=== PATIENT | female | born 1980 | race African-American/Black ===

== ENCOUNTER 2019-04-22 02:36 | Inpatient (IN) | payer BC ==
[2019-04-22 02:57] VITALS: BMI 28.0
--- NOTE | 2019-04-22 03:03 | PDOC ---
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
--- NOTE | 2019-04-22 03:27 | PDOC ---
History of Present Illness - General Chief Complaint: Abnormal Lab Results (Outside) Stated Complaint: PCP SENT/LOW BLOOD COUNT Time Seen by Provider: 04/22/19 02:59 - History of Present Illness Initial Comments: 39 year old female with PMH of allergies, asthma, sickle cell trait and and chronic anemia presenting to our ED after being told by her PCP that her "blood count was low". She does have chronic SOB and global weakness for the past few years. She denies any new symptoms including chest pain, bleeding from any site , or other symptoms. 04/22/19 03:27 Past History - Past Medical History Allergies/Adverse Reactions: Allergies Allergy/AdvReac Type Severity Reaction Status Date / Time walnut Allergy Verified 04/22/19 03:28 Home Medications: Ambulatory Orders Montelukast Na [Singulair -] 10 mg PO HS 04/22/19 - Psycho Social/Smoking Cessation Hx Smoking History: Never smoked Hx Alcohol Use: No Drug/Substance Use Hx: No Review of Systems - Review of Systems Constitutional: No: Chills, Diaphoresis, Fever HEENTM: No: Eye Pain, Blurred Vision, Tearing Respiratory: Yes: Shortness of Breath. No: Cough, Orthopnea Cardiac (ROS): Yes: Lightheadedness. No: Chest Pain, Irregular Heart Rate, Chest Tightness ABD/GI: No: Diarrhea, Nausea, Vomiting : No: Burning, Dysuria, Discharge Integumentary: No: Bruising, Erythema, Flushing Neurological: No: Headache, Numbness, Paresthesia Psychiatric: No: Anxiety, Depression Hematologic/Lymphatic: No: Anemia, Blood Clots, Easy Bleeding *Physical Exam - Vital Signs Last Vital Signs Temp Pulse Resp BP Pulse Ox 98.7 F 85 18 147/86 95 04/22/19 02:50 04/22/19 02:50 04/22/19 02:50 04/22/19 02:50 04/22/19 02:50 - Physical Exam General Appearance: Yes: Nourished, Appropriately Dressed. No: Apparent Distress HEENT: positive: EOMI, JEREMI, Normal ENT Inspection, Normal Voice Neck: positive: Trachea midline, Normal Thyroid, Supple. negative: Tender, Rigid Respiratory/Chest: positive: Lungs Clear, Normal Breath Sounds. negative: Chest Tender, Respiratory Distress, Accessory Muscle Use Cardiovascular: positive: Regular Rhythm, Regular Rate Gastrointestinal/Abdominal: positive: Normal Bowel Sounds, Flat, Soft. negative : Tender Lymphatic: negative: Adenopathy, Tenderness Musculoskeletal: positive: Normal Inspection. negative: CVA Tenderness Extremity: positive: Normal Capillary Refill, Normal Inspection, Normal Range of Motion Integumentary: positive: Dry, Warm, Cyanotic. negative: Normal Color Neurologic: positive: take down inspector II-XII NML intact, Fully Oriented, Alert, Normal Mood/ Affect, Normal Response, Motor Strength 09/07 ED Treatment Course - LABORATORY CBC & Chemistry Diagram: 04/22/19 03:10 04/22/19 03:10 Medical Decision Making - Medical Decision Making 39 year old female with PMH of anemia and "sickle cell trait" presenting with anemia on outside labs and HgB <7.0. Orderd 1 unit PRBC. Unlcear cause for anemia but could be related to other thalessemia vs. pericious anemia vs. diet related anemia vs. occult GI losses vs. losses. Patient will be admitted to Dr. Cassidy/ Jeanette (admit for Dr. Mock) via Hospitalist service. Placed admission under Dr. Joseph per his wishes. 04/22/19 04:10 Discharge - Discharge Information Problems reviewed: Yes Clinical Impression/Diagnosis: Transfusion of blood during current hospitalisation Anemia Qualifiers: Anemia type: unspecified type Qualified Code(s): D64.9 - Anemia, unspecified Condition: Stable - Admission Yes - Follow up/Referral - Patient Discharge Instructions - Post Discharge Activity
[2019-04-22 03:37] LABS: BASO % 1.6 % (0-2.0); EOS % 7.1 % (0-4.5); HEMATOCRIT 21.9 % (32.4-45.2); LYMPH % 32.4 % (8-40); MCHC 30.5 g/dl (32.0-36.0); MEAN CELL VOLUME 61.5 fl (80-96); MEAN PLT VOLUME 8.7 fl (7.5-11.1); MONO % 8.3 % (3.8-10.2); NEUT % 50.6 % (42.8-82.8); PLATELET COUNT 393 K/MM3 (134-434); RBC 3.55 M/mm3 (3.60-5.2); RDW 19.9 % (11.6-15.6); WHITE BLOOD COUNT 6.4 K/mm3 (4.0-10.0)
[2019-04-22 03:38] LABS: MCH 18.8 pg (25.7-33.7)
[2019-04-22 03:39] LABS: HEMOGLOBIN 6.7 GM/dL (10.7-15.3)
[2019-04-22 03:47] LABS: INR 1.02 (0.83-1.09)
[2019-04-22 03:49] LABS: ALBUMIN 3.5 g/dl (3.4-5.0); BILIRUBIN,TOTAL 0.2 mg/dL (0.2-1); BLOOD UREA NITROGEN 15.2 mg/dL (7-18); CALCIUM 8.9 mg/dL (8.5-10.1); CREATININE 0.7 mg/dL (0.55-1.3); POTASSIUM 3.8 mmol/L (3.5-5.1); TOT PROT 7.2 g/dl (6.4-8.2)
[2019-04-22 04:08] LABS: ANISOCYTOSIS 1+
[2019-04-22 04:09] LABS: PLATELET ESTIMATE ADEQUATE
[2019-04-22] MEDS ORDERED: ALBUTEROL SO4 0.083% IH SOL 2.5 MG/3 ML VIAL.NEB. NEB PRN (04:45)
--- NOTE | 2019-04-22 04:51 | HP ---
CHIEF COMPLAINT: Shortness of breath, anemia PCP: Dr. Cummings HISTORY OF PRESENT ILLNESS: Pt. is a 39 y.o. F w/ PMHx. of Iron deficiency anemia, asthma and uterine fibroids presents from Dr. Villalta's office for anemia. Per Pt. her hemoglobin was 6.3 in the office and 6.7 on ED arrival. Pt. endorses having heavy nose bleeds for the past 2 weeks and heavy menstration starting April 12 for a "few days." Per Pt. she does not usually have heavy cycles but endorses it happening intermittently. Pt. states that she is chronically anemic and has been unable to tolerate PO Iron due to constipation and nausea. Pt. states she has only received an IV treatment for IV iron over 4 weeks (4 times) in December 2017. Pt. denies ever getting blood transfusion in the past. Pt. denies having any family history of blood diseases including thalassemia and sickle cell. Pt. states that she sometimes uses her inhaler 3 times per day but that now she is using it 2x per day for the last week because of wheezing for 1 week. Pt. endorses dull chest pain that has been chronic and constant for months. Pt. denies any fever chills, nausea, vomiting, melena, numbness/tingling, constipation, hematochezia or abdominal pain. ER course was notable for: (1) CBC. EKG, CXR (2) T&S, 2 units of pRBCs ordered (3) Recent Travel: Denies PAST MEDICAL HISTORY: As per HPI PAST SURGICAL HISTORY: x 2 Social History: Smoking: Denies Alcohol: Denies Drugs: Denies Allergies walnut Allergy (Verified 04/22/19 03:28) Dander Seasonal allergies HOME MEDICATIONS: Home Medications Medication Instructions Recorded Montelukast Na [Singulair -] 10 mg PO HS 04/22/19 REVIEW OF SYSTEMS As above PHYSICAL EXAMINATION Vital Signs - 24 hr 04/22/19 02:50 Temperature 98.7 F Pulse Rate 85 Respiratory 18 Rate Blood Pressure 147/86 O2 Sat by Pulse 95 Oximetry (%) GENERAL: Awake, alert, and fully oriented, in no acute distress. HEAD: Normal with no signs of trauma. EYES: Extraocular movements intact, sclera anicteric, decreased pallor in conjunctiva. EARS, NOSE, THROAT: Ears normal, nares patent, oropharynx clear without exudates. Moist mucous membranes. NECK: Normal range of motion, supple without lymphadenopathy, JVD, or masses. LUNGS: Diffuse wheezing, no crackles, no accessory muscle use HEART: Regular rate and rhythm, normal S1 and S2 without murmur ABDOMEN: Soft, nontender, not distended, normoactive bowel sounds, no guarding, no rebound, no masses, jose-umbilical hernia, reducible. MUSCULOSKELETAL: Normal range of motion at all joints. No bony deformities or tenderness. No CVA tenderness. UPPER EXTREMITIES: Warm, well-perfused. No cyanosis. No clubbing. No peripheral edema. LOWER EXTREMITIES: 2+ dorsal pedal pulses, warm, well-perfused. No calf tenderness. No pitting edema. NEUROLOGICAL: Cranial nerves II-XII grossly intact. Normal speech. Gait no assessed PSYCHIATRIC: Cooperative. Good eye contact. Appropriate mood and affect. SKIN: Warm, dry, normal turgor Laboratory Results - last 24 hr 04/22/19 04/22/19 04/22/19 03:10 03:10 03:10 WBC 6.4 RBC 3.55 L Hgb 6.7 L* Hct 21.9 L MCV 61.5 L MCH 18.8 L MCHC 30.5 L RDW 19.9 H Plt Count 393 MPV 8.7 Absolute Neuts (auto) 3.2 Neutrophils % 50.6 Lymphocytes % 32.4 Monocytes % 8.3 Eosinophils % 7.1 H Basophils % 1.6 Nucleated RBC % 0 Hypochromia 3+ Platelet Estimate Adequate Platelet Comment No clumping noted Polychromasia 1+ Anisocytosis 1+ Microcytosis 2+ Spherocytes 1+ PT with INR INR PTT (Actin FS) 32.5 Sodium 141 Potassium 3.8 Chloride 107 Carbon Dioxide 27 Anion Gap 7 L BUN 15.2 Creatinine 0.7 Est GFR (CKD-EPI)AfAm 124.73 Est GFR (CKD-EPI)NonAf 107.62 Random Glucose 86 Calcium 8.9 Total Bilirubin 0.2 AST 25 ALT 27 Alkaline Phosphatase 112 LD Total 196 Total Protein 7.2 Albumin 3.5 Blood Type Antibody Screen Crossmatch 04/22/19 04/22/19 04/22/19 03:10 03:10 03:40 WBC RBC Hgb Hct MCV MCH MCHC RDW Plt Count MPV Absolute Neuts (auto) Neutrophils % Lymphocytes % Monocytes % Eosinophils % Basophils % Nucleated RBC % Hypochromia Platelet Estimate Platelet Comment Polychromasia Anisocytosis Microcytosis Spherocytes PT with INR 12.00 INR 1.02 PTT (Actin FS) Sodium Potassium Chloride Carbon Dioxide Anion Gap BUN Creatinine Est GFR (CKD-EPI)AfAm Est GFR (CKD-EPI)NonAf Random Glucose Calcium Total Bilirubin AST ALT Alkaline Phosphatase LD Total Total Protein Albumin Blood Type O POSITIVE O POSITIVE Antibody Screen Negative Negative Crossmatch See Detail ASSESSMENT/PLAN: Pt. is a 39 y.o. F w/ PMHx. of Iron deficiency anemia, asthma and uterine fibroids presents from Dr. Villalta's office for anemia. #Iron deficiency microcytic anemia 2/2 Fibroid Uterus? vs. nose bleeds HgB: 6.7 MCV: 61.5 Per Pt's records from her phone of Iron studies done in December form Dr. Villalta's office, Pt.'s HgB was 7.4, Ferritin was 7. Iron was 22, Total Iron Saturation was 5.2, MCV in 60s. Will transfuse 1 unit, f/u CBC and then if lower than 7, will transfuse again f/u Pelvic US for fibroids #Asthma Duonebs RQID Albuterol PRN f/u CXR keep spO2 above 92% #FEN no IVF, encourage PO intake monitor electrolytes and replete as needed Regular Diet #DVT Ppx. SCDs, hold AC in setting of anemia Visit type - Emergency Visit Emergency Visit: Yes ED Registration Date: 04/22/19 Care time: The patient presented to the Emergency Department on the above date and was hospitalized for further evaluation of their emergent condition. - New Patient This patient is new to me today: Yes Date on this admission: 04/22/19 - Critical Care Critical Care patient: No ATTENDING PHYSICIAN STATEMENT I saw and evaluated the patient. I reviewed the resident's note and discussed the case with the resident. I agree with the resident's findings and plan as documented. SUBJECTIVE: OBJECTIVE: ASSESSMENT AND PLAN:
[2019-04-22 06:13] VITALS: TEMP 98.2
--- NOTE | 2019-04-22 06:59 | PN ---
Teaching Attending Note Name of Resident: Sanju Garrett ATTENDING PHYSICIAN STATEMENT I saw and evaluated the patient. I reviewed the resident's note and discussed the case with the resident. I agree with the resident's findings and plan as documented. SUBJECTIVE: 39 y.o. F w/ PMHx. of Iron deficiency anemia, asthma and uterine fibroids presents from Dr. Villalta's office for anemia With severe anemia requiring a blood transfusion Pt. endorses having heavy nose bleeds for the past 2 weeks and heavy menstration. OBJECTIVE: Last Vital Signs Temp Pulse Resp BP Pulse Ox 98.2 F 80 16 134/83 98 04/22/19 06:11 04/22/19 06:11 04/22/19 06:11 04/22/19 06:11 04/22/19 06:11 GENERAL: Well developed, well nourished. Awake and alert. No acute distress. HEENT: Scleral pallor NECK: Supple. Full ROM. No JVD. Carotid pulses 2+ and symmetric, without bruits. No thyromegaly. No lymphadenopathy. CARDIOVASCULAR: Regular rate and rhythm. No murmurs, rubs, or gallops. Distal pulses are 2+ and symmetric. PULMONARY: No evidence of respiratory distress. Lungs clear to auscultation bilaterally. No wheezing, rales or rhonchi. ABDOMINAL: Soft. Non-tender. Non-distended. No rebound or guarding. No organomegaly. Normoactive bowel sounds. MUSCULOSKELETAL Normal range of motion at all joints. No bony deformities or tenderness. No CVA tenderness. EXTREMITIES: No cyanosis. No clubbing. No edema. No calf tenderness. SKIN: Skin pallor PSYCHIATRIC: Cooperative. Good eye contact. Appropriate mood and affect. Abnormal Lab Results 04/22/19 04/22/19 04/22/19 03:10 03:10 03:40 RBC 3.55 L Hgb 6.7 L* Hct 21.9 L MCV 61.5 L MCH 18.8 L MCHC 30.5 L RDW 19.9 H Eosinophils % 7.1 H Anion Gap 7 L Crossmatch See Detail Imaging reviewed ASSESSMENT AND PLAN: Severe microcytic anemiasuspect from heavy menses or possibly nosebleeds Admit to MedSurg Ferritin, iron studies, vitamin B12 Red blood smear Transfuse 1 unit of PRBC and repeat CBC Pelvic ultrasound to her evaluate for fibroids Hematology consultDrLakhwinder Villalta DVT prophylaxis with SCDs
[2019-04-22] MEDS ORDERED: ALBUTEROL SO4 2.5/IPRATROPIUM 0.5 INH SOL 3 ML VIAL.NEB. NEB ONE ×2 (07:20→12:06)
[2019-04-22] MEDS: ALBUTEROL SO4 2.5/IPRATROPIUM 0.5 INH SOL 3 ML VIAL.NEB. NEB SCH ×3 (07:24→16:12)
--- NOTE | 2019-04-22 11:06 | PN ---
Progress Note, Physician Chief Complaint: Iron deficiency anemia History of Present Illness: NAD received 1 U PRBC Repeat CBC pending - Current Medication List Current Medications: Active Medications Albuterol Sulfate (Ventolin 0.083% Nebulizer Soln -) 1 amp NEB RQID PRN PRN Reason: SHORT OF BREATH/WHEEZING Albuterol/Ipratropium (Duoneb -) 1 amp NEB RQID JACQUELINE Last Admin: 04/22/19 07:24 Dose: 1 amp - Objective Vital Signs: Vital Signs Temperature 98.2 F 04/22/19 06:11 Pulse Rate 80 04/22/19 06:11 Respiratory Rate 16 04/22/19 06:11 Blood Pressure 134/83 04/22/19 06:11 O2 Sat by Pulse Oximetry (%) 98 04/22/19 06:11 Constitutional: Yes: Well Nourished, No Distress, Calm Cardiovascular: Yes: Regular Rate and Rhythm Respiratory: Yes: Regular Musculoskeletal: Yes: WNL Extremities: Yes: WNL Edema: No Peripheral Pulses WNL: Yes Neurological: Yes: Alert, Oriented Psychiatric: Yes: Alert, Oriented Labs: CBC, BMP 04/22/19 03:10 04/22/19 03:10 INR, PTT INR 1.02 (0.83-1.09) 04/22/19 03:10 Problem List - Problems (1) Iron deficiency anemia Assessment/Plan: -Received 1 unit of PRBC -Will give 1 dose of Venofer -Ok to go home after and f/u with Hematology -pt unable to tolerate PO Iron 2/2 to constipation Problems reviewed: Yes Code(s): D50.9 - IRON DEFICIENCY ANEMIA, UNSPECIFIED
--- NOTE | 2019-04-22 11:36 | CONSULT ---
Consultation: REQUESTING PROVIDER: Dr Garrett CONSULT REQUEST: We have been asked to medically evaluate this patient for ( symptomatic anemia Low HGB 6.7 ). HISTORY OF PRESENT ILLNESS: 39 year old female with pmhx of iron deficiency anemia, uterine fibroids , asthma/seasonal allergy, thyroid cyst , heart murmur , presented to the ED from office due to low HGb 6.2. 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 she denies any coagulpathy history or bleeding history in [facility] family , had 4 iron transfusion at [facility] and was not able to tolerate iron oral. Pt. denies any fever chills, nausea, vomiting, melena, numbness/tingling, constipation, hematochezia or abdominal pain. PMHx : Asthma , iron deficiency anemia, thyroid cyst , PSHx : thyroid cyst removal , knee surgery , X2 , diagnostic cardiac cath . 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 : [employer] Meds : Montelukast , Ibuprofen prescription REVIEW OF SYSTEMS: CONSTITUTIONAL: Absent: fever, chills, diaphoresis, generalized weakness, malaise, loss of appetite, weight change HEENT: Absent: rhinorrhea, nasal congestion, throat pain, throat swelling, difficulty swallowing, mouth swelling, ear pain, eye pain, visual changes, nose bleed CARDIOVASCULAR: Absent: dull chest pain, syncope, palpitations, irregular heart rate, lightheadedness, peripheral edema RESPIRATORY: Absent: cough, shortness of breath, dyspnea with exertion, orthopnea, wheezing, stridor, hemoptysis GASTROINTESTINAL: Absent: abdominal pain, abdominal distension, nausea, vomiting, diarrhea, constipation, melena, hematochezia GENITOURINARY: Absent: dysuria, frequency, urgency, hesitancy, hematuria, flank pain, genital pain, menorrhagia , MUSCULOSKELETAL: Absent: myalgia, arthralgia, joint swelling, back pain, neck pain SKIN: Absent: rash, itching, pallor HEMATOLOGIC/IMMUNOLOGIC: Absent: easy bleeding, easy bruising, lymphadenopathy, frequent infections ENDOCRINE: Absent: unexplained weight gain, unexplained weight loss, heat intolerance, cold intolerance NEUROLOGIC: Absent: headache, focal weakness or paresthesias, dizziness, unsteady gait, seizure, mental status changes, bladder or bowel incontinence PSYCHIATRIC: Absent: anxiety, depression, suicidal or homicidal ideation, hallucinations. PHYSICAL EXAMINATION Vital Signs - 24 hr 04/22/19 04/22/19 04/22/19 02:50 04:55 05:10 Temperature 98.7 F 97.8 F 98.1 F Pulse Rate 85 Pulse Rate [ 86 83 Right Radial] Respiratory 18 18 18 Rate Blood Pressure 147/86 Blood Pressure 134/67 132/70 [Left Arm] O2 Sat by Pulse 95 100 98 Oximetry (%) 04/22/19 04/22/19 06:11 11:03 Temperature 98.2 F 98.2 F Pulse Rate Pulse Rate [ 80 79 Right Radial] Respiratory 16 19 Rate Blood Pressure Blood Pressure 134/83 130/67 [Left Arm] O2 Sat by Pulse 98 99 Oximetry (%) GENERAL: Awake, alert, and fully oriented, in no acute distress.palor HEAD: Normal with no signs of trauma. EYES: Pupils equal, round and reactive to light, extraocular movements intact, sclera aplor , EARS, NOSE, THROAT: Ears normal, nares patent, oropharynx clear without exudates. Moist mucous membranes. NECK: supple without lymphadenopathy, anterior surgical scar LUNGS: Breath sounds equal, clear to auscultation bilaterally. No wheezes, and no crackles. No accessory muscle use. HEART: Regular rate and rhythm, normal S1 and S2 soft murmur LUSB , rub or gallop. ABDOMEN: Soft, nontender, not distended, normoactive bowel sounds, no guarding, no rebound,, umbilical hernia LOWER EXTREMITIES: 2+ pulses, warm, well-perfused. No calf tenderness. No peripheral edema. NEUROLOGICAL: no focal deficit . Normal speech. Normal gait. PSYCHIATRIC: Cooperative. Good eye contact. SKIN: Warm, dry, tatoes on hands and legs, anterior surgical neck scar (thyroid cyst removal ) Laboratory Results - last 24 hr 04/22/19 04/22/19 04/22/19 03:10 03:10 03:10 WBC 6.4 RBC 3.55 L Hgb 6.7 L* Hct 21.9 L MCV 61.5 L MCH 18.8 L MCHC 30.5 L RDW 19.9 H Plt Count 393 MPV 8.7 Absolute Neuts (auto) 3.2 Neutrophils % 50.6 Lymphocytes % 32.4 Monocytes % 8.3 Eosinophils % 7.1 H Basophils % 1.6 Nucleated RBC % 0 Hypochromia 3+ Platelet Estimate Adequate Platelet Comment No clumping noted Polychromasia 1+ Anisocytosis 1+ Microcytosis 2+ Spherocytes 1+ PT with INR INR PTT (Actin FS) 32.5 Sodium 141 Potassium 3.8 Chloride 107 Carbon Dioxide 27 Anion Gap 7 L BUN 15.2 Creatinine 0.7 Est GFR (CKD-EPI)AfAm 124.73 Est GFR (CKD-EPI)NonAf 107.62 Random Glucose 86 Calcium 8.9 Total Bilirubin 0.2 AST 25 ALT 27 Alkaline Phosphatase 112 LD Total 196 Total Protein 7.2 Albumin 3.5 Serum , Qual Blood Type Antibody Screen Crossmatch 04/22/19 04/22/19 04/22/19 03:10 03:10 03:10 WBC RBC Hgb Hct MCV MCH MCHC RDW Plt Count MPV Absolute Neuts (auto) Neutrophils % Lymphocytes % Monocytes % Eosinophils % Basophils % Nucleated RBC % Hypochromia Platelet Estimate Platelet Comment Polychromasia Anisocytosis Microcytosis Spherocytes PT with INR 12.00 INR 1.02 PTT (Actin FS) Sodium Potassium Chloride Carbon Dioxide Anion Gap BUN Creatinine Est GFR (CKD-EPI)AfAm Est GFR (CKD-EPI)NonAf Random Glucose Calcium Total Bilirubin AST ALT Alkaline Phosphatase LD Total Total Protein Albumin Serum , Qual Negative Blood Type O POSITIVE Antibody Screen Negative Crossmatch 04/22/19 03:40 WBC RBC Hgb Hct MCV MCH MCHC RDW Plt Count MPV Absolute Neuts (auto) Neutrophils % Lymphocytes % Monocytes % Eosinophils % Basophils % Nucleated RBC % Hypochromia Platelet Estimate Platelet Comment Polychromasia Anisocytosis Microcytosis Spherocytes PT with INR INR PTT (Actin FS) Sodium Potassium Chloride Carbon Dioxide Anion Gap BUN Creatinine Est GFR (CKD-EPI)AfAm Est GFR (CKD-EPI)NonAf Random Glucose Calcium Total Bilirubin AST ALT Alkaline Phosphatase LD Total Total Protein Albumin Serum , Qual Blood Type O POSITIVE Antibody Screen Negative Crossmatch See Detail Active Medications Generic Name Dose Route Start Last Admin Trade Name Freq PRN Reason Stop Dose Admin Albuterol Sulfate 1 amp 04/22/19 04:45 Ventolin 0.083% Nebulizer Soln - NEB RQID PRN SHORT OF BREATH/WHEEZING Albuterol/Ipratropium 1 amp 04/22/19 08:00 04/22/19 07:24 Duoneb - NEB 1 amp RQID JACQUELINE Administration CBC, BMP 04/22/19 03:10 04/22/19 03:10 ASSESSMENT/PLAN: 39 year old female with pmhx of iron deficiency anemia, uterine fibroids , asthma/seasonal allergy, thyroid cyst , heart murmur , presented to the ED from office due to low HGb 6.2. # Microcytic, hypochromic anemia likely 2/2 menorrhagia and nose bleed * HGb 6.7 in ED , MCV 61 m MCHC 30, RDW 19, ferritin 2.2 , iron 107, TIBC 439, iron sat 24, * symptomatic with fatigue , palpitaion , light headed, palor icterus , like to ice chipps * S/P one units of PRBC * repeat CBC * venofer * could not tolerate PO iron * will benefit from Iron infusion as out pt * had 4 infusion at [facility] in December 2017 per pt * Avoid NASIDS , pt is using Ibuprofen prescription for headache , recommend to use Tylenol and avoid any NSAIDS * follow up out pt with Dr Villalta * follow up loss control manager out pt for fibroids # Asthma/Seasonal Allergy bronchodilators as needed , on Montelukast at home # 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 follow up with triage licensed practical nurse regarding fibroids # Umbilical hernia , asymptomatic follow up out pt # Soft Murmur LUSB ,likely due to anemia , had cardiac cath in the past for heart racing and was negative per pt . Dispo: We will continue to follow the patient. Thank you for this consultative opportunity. Visit type - Emergency Visit Emergency Visit: Yes ED Registration Date: 04/22/19 Care time: The patient presented to the Emergency Department on the above date and was hospitalized for further evaluation of their emergent condition. - New Patient This patient is new to me today: Yes Date on this admission: 04/22/19 - Critical Care Critical Care patient: No ATTENDING PHYSICIAN STATEMENT I saw and evaluated the patient. I reviewed the resident's note and discussed the case with the resident. I agree with the resident's findings and plan as documented. SUBJECTIVE: OBJECTIVE: ASSESSMENT AND PLAN:
[2019-04-22 12:23] LABS: HEMATOCRIT 23.8 % (32.4-45.2); HEMOGLOBIN 7.3 GM/dL (10.7-15.3); MCHC 30.8 g/dl (32.0-36.0); MEAN PLT VOLUME 8.6 fl (7.5-11.1); PLATELET COUNT 331 K/MM3 (134-434); RBC 3.72 M/mm3 (3.60-5.2); RDW 21.2 % (11.6-15.6); WHITE BLOOD COUNT 5.8 K/mm3 (4.0-10.0)
[2019-04-22 12:31] LABS: MCH 19.7 pg (25.7-33.7)
--- NOTE | 2019-04-22 12:36 | EKG ---
Test Reason : Blood Pressure : / mmHG Vent. Rate : 081 BPM Atrial Rate : 081 BPM P-R Int : 204 ms QRS Dur : 102 ms QT Int : 414 ms P-R-T Axes : 079 008 051 degrees QTc Int : 480 ms NORMAL SINUS RHYTHM PROLONGED QT ABNORMAL ECG NO PREVIOUS ECGS AVAILABLE Confirmed by ROOPA RENTERIA, DALE ([id number]) on 04/22/2019 12:36:19 PM Referred By: Confirmed By:DALE BLAS MD
[2019-04-22] MEDS ORDERED: IRON SUCROSE INJECTION 300 MG in SODIUM CHLORIDE 250 ML IVPB ONE (13:12)
[2019-04-22 18:08] LABS: BASO % 0.8 % (0-2.0); EOS % 6.1 % (0-4.5); HEMATOCRIT 24.9 % (32.4-45.2); LYMPH % 29.5 % (8-40); MCH 20.9 pg (25.7-33.7); MEAN CELL VOLUME 65.1 fl (80-96); MEAN PLT VOLUME 8.1 fl (7.5-11.1); MONO % 8.7 % (3.8-10.2); NEUT % 54.9 % (42.8-82.8); PLATELET COUNT 299 K/MM3 (134-434); RBC 3.83 M/mm3 (3.60-5.2); RDW 23.4 % (11.6-15.6)
[2019-04-22 18:14] VITALS: BP 126/70; PULSE 74
== END 2019-04-22 18:21 | disposition home or self-care (01) | DRG 812 ==
LOC: JER 02:36 → JERBED 03:47
PROVIDERS: ADMIT Internal Medicine; ATTEND Family Medicine
PROC: 30233N1 Transfusion of Nonautologous Red Blood Cells into Peripheral Vein, Percutaneous Approach (ICD-10-PCS; principal; 2019-04-22)
DX: D50.9 Iron deficiency anemia, unspecified (principal); D25.9 Leiomyoma of uterus, unspecified; N92.0 Excessive and frequent menstruation with regular cycle; R04.0 Epistaxis; J45.909 Unspecified asthma, uncomplicated; K42.9 Umbilical hernia without obstruction or gangrene
CPT/HCPCS: 36415; 36430; 36511; 71045-TC-FY; 76856-TC; 80053; 82728; 83540; 83550; 83615; 84443; 84703; 85025; 85027; 85610; 85730; 86850; 86900; 86901; 86922; 93005; 93010; 99285-25; J1756; P9016; P9038; P9058

== ENCOUNTER 2019-05-08 06:07 | Day surgery (SDC) | payer BC ==
[~2019-05-08 06:07] MED LIST: IRON SUCROSE INJECTION 200 MG in SODIUM CHLORIDE 100 ML IVPB ONE
[2019-05-08] MEDS: IRON SUCROSE INJECTION 200 MG in SODIUM CHLORIDE 100 ML IVPB ONE ×2 (08:27→09:47)
[2019-05-08 09:11] LABS: BASO % 1.3 % (0-2.0); EOS % 9.7 % (0-4.5); HEMATOCRIT 33.4 % (32.4-45.2); HEMOGLOBIN 10.6 GM/dL (10.7-15.3); MCH 22.1 pg (25.7-33.7); MCHC 31.7 g/dl (32.0-36.0); MEAN CELL VOLUME 69.8 fl (80-96); MEAN PLT VOLUME 8.8 fl (7.5-11.1); MONO % 6.4 % (3.8-10.2); NEUT % 50.6 % (42.8-82.8); PLATELET COUNT 349 K/MM3 (134-434); RBC 4.79 M/mm3 (3.60-5.2); RDW 29.6 % (11.6-15.6); WHITE BLOOD COUNT 6.2 K/mm3 (4.0-10.0)
[2019-05-08 09:15] LABS: ALBUMIN 3.7 g/dl (3.4-5.0); BILIRUBIN,TOTAL 0.3 mg/dL (0.2-1); BLOOD UREA NITROGEN 15.2 mg/dL (7-18); CREATININE 0.9 mg/dL (0.55-1.3); MAGNESIUM 2.2 mg/dL (1.8-2.4); POTASSIUM 3.6 mmol/L (3.5-5.1); TOT PROT 7.7 g/dl (6.4-8.2)
[2019-05-08 09:54] VITALS: BP 132/72; PULSE 78; TEMP 98.6
[2019-05-08 13:50] LABS: ANISOCYTOSIS 3+; MACROCYTOSIS 0; OVALOCYTE 1+; PLATELET ESTIMATE NORMAL; TARGET CELLS 1+; TEAR DROP CELLS 1+
== END 2019-05-08 09:45 | disposition home or self-care (01) ==
LOC: JONCNONCHE 06:07 → J7W 08:01 → JONCNONCHE 09:45
PROVIDERS: ATTEND Internal Medicine Hematology & Oncology
PROC: 3E033GC Introduction of Other Therapeutic Substance into Peripheral Vein, Percutaneous Approach (ICD-10-PCS; principal; 2019-05-08)
DX: D50.9 Iron deficiency anemia, unspecified (principal); D57.1 Sickle-cell disease without crisis; J45.909 Unspecified asthma, uncomplicated
CPT/HCPCS: 36415; 80053; 82728; 83540; 83550; 83735; 84466; 85025; 96365; J1756

== ENCOUNTER 2019-05-15 05:36 | Day surgery (SDC) | payer BC ==
[2019-05-15] MEDS ORDERED: IRON SUCROSE INJECTION 200 MG in SODIUM CHLORIDE 100 ML IVPB ONE (10:00)
[2019-05-15 12:21] LABS: BASO % 0.7 % (0-2.0); EOS % 4.6 % (0-4.5); HEMATOCRIT 31.2 % (32.4-45.2); HEMOGLOBIN 9.8 GM/dL (10.7-15.3); LYMPH % 27.9 % (8-40); MCH 22.6 pg (25.7-33.7); MCHC 31.5 g/dl (32.0-36.0); MEAN CELL VOLUME 71.7 fl (80-96); MEAN PLT VOLUME 9.2 fl (7.5-11.1); MONO % 5.5 % (3.8-10.2); NEUT % 61.3 % (42.8-82.8); PLATELET COUNT 330 K/MM3 (134-434); RBC 4.34 M/mm3 (3.60-5.2); RDW 30.5 % (11.6-15.6); WHITE BLOOD COUNT 6.2 K/mm3 (4.0-10.0)
[2019-05-15 12:55] LABS: ALBUMIN 3.6 g/dl (3.4-5.0); BILIRUBIN,TOTAL 0.4 mg/dL (0.2-1); BLOOD UREA NITROGEN 12.2 mg/dL (7-18); CALCIUM 9.1 mg/dL (8.5-10.1); CREATININE 0.8 mg/dL (0.55-1.3); POTASSIUM 4.1 mmol/L (3.5-5.1); TOT PROT 7.4 g/dl (6.4-8.2)
[2019-05-15 15:36] VITALS: BP 145/87; PULSE 69; TEMP 98
== END 2019-05-15 13:00 | disposition home or self-care (01) ==
LOC: JONCNONCHE 05:36 → J7W 11:12 → JONCNONCHE 13:00
PROVIDERS: ATTEND Internal Medicine Hematology & Oncology
PROC: 3E033GC Introduction of Other Therapeutic Substance into Peripheral Vein, Percutaneous Approach (ICD-10-PCS; principal; 2019-05-15)
DX: D50.9 Iron deficiency anemia, unspecified (principal); D57.1 Sickle-cell disease without crisis; J45.909 Unspecified asthma, uncomplicated
CPT/HCPCS: 36415; 80053; 82728; 83540; 83550; 83735; 85025; 96365; J1756

== ENCOUNTER 2019-05-22 07:10 | Day surgery (SDC) | payer BC ==
[2019-05-22] MEDS ORDERED: IRON SUCROSE INJECTION 200 MG in SODIUM CHLORIDE 100 ML IVPB ONE (10:00)
[2019-05-22 11:14] VITALS: TEMP 98.4
[2019-05-22 11:29] VITALS: BP 144/89; PULSE 70
== END 2019-05-22 11:25 | disposition home or self-care (01) ==
LOC: JONCNONCHE 07:10 → J7W 09:54 → JONCNONCHE 11:25
PROVIDERS: ATTEND Internal Medicine Hematology & Oncology
PROC: 3E033GC Introduction of Other Therapeutic Substance into Peripheral Vein, Percutaneous Approach (ICD-10-PCS; principal; 2019-05-22)
DX: D50.9 Iron deficiency anemia, unspecified (principal); D57.1 Sickle-cell disease without crisis; J45.909 Unspecified asthma, uncomplicated
CPT/HCPCS: 96365; J1756

== ENCOUNTER 2019-06-25 05:41 | Day surgery (SDC) | payer BC ==
[2019-06-25] MEDS ORDERED: IRON SUCROSE INJECTION 200 MG in SODIUM CHLORIDE 100 ML IVPB ONE (10:00)
[2019-06-25 15:36] VITALS: BP 146/82; PULSE 72; TEMP 98.9
== END 2019-06-25 14:45 | disposition home or self-care (01) ==
LOC: JONCNONCHE 05:41 → J7W 12:57 → JONCNONCHE 14:45
PROVIDERS: ATTEND Internal Medicine Hematology & Oncology
PROC: 3E033GC Introduction of Other Therapeutic Substance into Peripheral Vein, Percutaneous Approach (ICD-10-PCS; principal; 2019-06-25)
DX: D50.9 Iron deficiency anemia, unspecified (principal)
CPT/HCPCS: 96365; J1756

== ENCOUNTER → 2019-11-10 | Day surgery (SDC) | payer BC ==
[~2019-11-10] MED LIST changes: +HYDROCORTISONE SOD SUCCINATE 100 MG/2 ML VIAL IVPUSH PRN; +diphenhydrAMINE HCL 25 MG CAPSULE (FP) PO PRN
== END | disposition home or self-care (01) ==
LOC: JONCNONCHE 07:15
PROVIDERS: ATTEND Internal Medicine Hematology & Oncology
DX: Z53.8 Procedure and treatment not carried out for other reasons (principal)

== ENCOUNTER 2019-11-24 07:11 | Day surgery (SDC) | payer BC ==
[2019-11-24 10:26] LABS: BASO % 1.1 % (0-2.0); EOS % 7.7 % (0-4.5); HEMATOCRIT 28.6 % (32.4-45.2); HEMOGLOBIN 9.1 GM/dL (10.7-15.3); LYMPH % 27.7 % (8-40); MCH 25.6 pg (25.7-33.7); MEAN CELL VOLUME 80.1 fl (80-96); MEAN PLT VOLUME 8.6 fl (7.5-11.1); NEUT % 55.5 % (42.8-82.8); PLATELET COUNT 327 K/MM3 (134-434); RBC 3.57 M/mm3 (3.60-5.2); RDW 14.5 % (11.6-15.6); WHITE BLOOD COUNT 4.6 K/mm3 (4.0-10.0)
[2019-11-24] MEDS ORDERED: IRON SUCROSE INJECTION 200 MG in SODIUM CHLORIDE 100 ML IVPB ONE (17:00)
[2019-11-24 17:46] VITALS: BP 123/74; PULSE 85; TEMP 98.1
== END 2019-11-24 17:47 | disposition home or self-care (01) ==
LOC: JONCNONCHE 07:11
PROVIDERS: ATTEND Internal Medicine Hematology & Oncology
PROC: 3E033GC Introduction of Other Therapeutic Substance into Peripheral Vein, Percutaneous Approach (ICD-10-PCS; principal; 2019-11-24)
DX: D50.9 Iron deficiency anemia, unspecified (principal)
CPT/HCPCS: 36415; 85025; 96365; J1756

== ENCOUNTER 2019-12-01 07:03 | Day surgery (SDC) | payer BC ==
[2019-12-01] MEDS ORDERED: IRON SUCROSE INJECTION 200 MG in SODIUM CHLORIDE 100 ML IVPB ONE (18:00)
[2019-12-01 18:23] VITALS: TEMP 98.9
[2019-12-01 18:29] LABS: BASO % 1.1 % (0-2.0); EOS % 7.4 % (0-4.5); HEMATOCRIT 30.5 % (32.4-45.2); HEMOGLOBIN 9.7 GM/dL (10.7-15.3); MCH 25.6 pg (25.7-33.7); MEAN CELL VOLUME 80.2 fl (80-96); MEAN PLT VOLUME 8.8 fl (7.5-11.1); MONO % 8.5 % (3.8-10.2); PLATELET COUNT 321 K/MM3 (134-434); RDW 16.3 % (11.6-15.6); WHITE BLOOD COUNT 6.2 K/mm3 (4.0-10.0)
[2019-12-01 18:42] VITALS: BP 124/66; PULSE 66
[2019-12-01 18:54] LABS: ALBUMIN 3.7 g/dl (3.4-5.0); BILIRUBIN,DIRECT 0.1 mg/dL (0.0-0.2); BILIRUBIN,TOTAL 0.4 mg/dL (0.2-1); BLOOD UREA NITROGEN 11.3 mg/dL (7-18); CALCIUM 9.3 mg/dL (8.5-10.1); CREATININE 0.8 mg/dL (0.55-1.3); MAGNESIUM 2.2 mg/dL (1.8-2.4); POTASSIUM 3.5 mmol/L (3.5-5.1); TOT PROT 7.7 g/dl (6.4-8.2)
== END 2019-12-01 18:42 | disposition home or self-care (01) ==
LOC: JONCNONCHE 07:03
PROVIDERS: ATTEND Internal Medicine Hematology & Oncology
DX: D50.9 Iron deficiency anemia, unspecified (principal)
CPT/HCPCS: 36415; 80048; 80076; 83735; 85025; 96365; J1756

== ENCOUNTER 2019-12-08 07:05 | Day surgery (SDC) | payer BC ==
[2019-12-08] MEDS ORDERED: IRON SUCROSE INJECTION 200 MG in SODIUM CHLORIDE 100 ML IVPB ONE (15:45)
[2019-12-08 17:36] VITALS: BP 134/88; PULSE 75; TEMP 98.2
[2019-12-08 18:10] LABS: BASO % 1.1 % (0-2.0); EOS % 10.3 % (0-4.5); HEMATOCRIT 31.5 % (32.4-45.2); HEMOGLOBIN 10.1 GM/dL (10.7-15.3); MCH 25.9 pg (25.7-33.7); MCHC 31.9 g/dl (32.0-36.0); MEAN CELL VOLUME 81.2 fl (80-96); MEAN PLT VOLUME 8.9 fl (7.5-11.1); MONO % 8.8 % (3.8-10.2); NEUT % 47.8 % (42.8-82.8); PLATELET COUNT 318 K/MM3 (134-434); RBC 3.88 M/mm3 (3.60-5.2); RDW 18.3 % (11.6-15.6)
== END 2019-12-08 17:00 | disposition home or self-care (01) ==
LOC: JONCNONCHE 07:05
PROVIDERS: ATTEND Internal Medicine Hematology & Oncology
PROC: 3E033GC Introduction of Other Therapeutic Substance into Peripheral Vein, Percutaneous Approach (ICD-10-PCS; principal; 2019-12-08)
DX: D50.9 Iron deficiency anemia, unspecified (principal)
CPT/HCPCS: 36415; 85025; 96365; J1756

== ENCOUNTER 2021-06-30 07:31 | Day surgery (SDC) | payer BC ==
[2021-06-30] MEDS ORDERED: IRON SUCROSE INJECTION 300 MG in SODIUM CHLORIDE 250 ML IVPB ONE (16:00)
[2021-06-30 17:34] VITALS: TEMP 99
[2021-06-30 18:18] VITALS: BP 143/76; PULSE 83
== END 2021-06-30 18:20 | disposition home or self-care (01) ==
LOC: JONCNONCHE 07:31
PROVIDERS: ATTEND Internal Medicine Hematology & Oncology
PROC: 3E033GC Introduction of Other Therapeutic Substance into Peripheral Vein, Percutaneous Approach (ICD-10-PCS; principal; 2021-06-30)
DX: D50.9 Iron deficiency anemia, unspecified (principal)
CPT/HCPCS: 96365; J1756

== ENCOUNTER 2021-07-07 06:33 | Day surgery (SDC) | payer BC ==
[2021-07-07] MEDS ORDERED: IRON SUCROSE INJECTION 300 MG in SODIUM CHLORIDE 250 ML IVPB ONE ×2 (10:00→15:30)
[2021-07-07 15:55] LABS: BASO % 0.9 % (0-2.0); EOS % 2.9 % (0-4.5); HEMOGLOBIN 7.1 GM/dL (10.7-15.3); MCHC 30.7 g/dl (32.0-36.0); MEAN CELL VOLUME 63.7 fl (80-96); MEAN PLT VOLUME 6.9 fl (7.5-11.1); MONO % 7.5 % (3.8-10.2); NEUT % 61.7 % (42.8-82.8); PLATELET COUNT 381 10^3/uL (134-434); RBC 3.61 M/mm3 (3.60-5.2); RDW 21.1 % (11.6-15.6); WHITE BLOOD COUNT 4.3 K/mm3 (4.0-10.0)
[2021-07-07 15:56] LABS: MCH 19.6 pg (25.7-33.7)
[2021-07-07 16:34] VITALS: BP 131/69; PULSE 88; TEMP 97.8
[2021-07-07 17:53] LABS: ANISOCYTOSIS 2+; MACROCYTOSIS 1+; OVALOCYTE 1+; PLATELET ESTIMATE NORMAL; TARGET CELLS 1+; TEAR DROP CELLS 1+
== END 2021-07-07 17:45 | disposition home or self-care (01) ==
LOC: JONCNONCHE 06:33
PROVIDERS: ATTEND Internal Medicine Hematology & Oncology
PROC: 3E033GC Introduction of Other Therapeutic Substance into Peripheral Vein, Percutaneous Approach (ICD-10-PCS; principal; 2021-07-07)
DX: D50.9 Iron deficiency anemia, unspecified (principal)
CPT/HCPCS: 36415; 85025; 96365; J1756

== ENCOUNTER 2021-07-14 07:37 | Day surgery (SDC) | payer BC ==
[2021-07-14] MEDS ORDERED: IRON SUCROSE INJECTION 300 MG in SODIUM CHLORIDE 250 ML IVPB ONE (10:00)
[2021-07-14 15:41] LABS: BASO % 0.8 % (0-2.0); HEMATOCRIT 25.3 % (32.4-45.2); HEMOGLOBIN 7.8 GM/dL (10.7-15.3); LYMPH % 33.3 % (8-40); MCH 20.8 pg (25.7-33.7); MCHC 30.7 g/dl (32.0-36.0); MEAN CELL VOLUME 67.7 fl (80-96); MEAN PLT VOLUME 8.6 fl (7.5-11.1); MONO % 7.3 % (3.8-10.2); NEUT % 55.6 % (42.8-82.8); PLATELET COUNT 350 10^3/uL (134-434); RBC 3.74 M/mm3 (3.60-5.2); RDW 25.2 % (11.6-15.6); WHITE BLOOD COUNT 4.3 K/mm3 (4.0-10.0)
[2021-07-14 17:08] LABS: ANISOCYTOSIS 3+; MACROCYTOSIS 0; OVALOCYTE 1+; TARGET CELLS 1+
[2021-07-14 17:21] VITALS: TEMP 98.4
[2021-07-14 17:26] VITALS: BP 136/70; PULSE 74
== END 2021-07-14 16:15 | disposition home or self-care (01) ==
LOC: JONCCHEMO 07:37
PROVIDERS: ATTEND Internal Medicine Hematology & Oncology
PROC: 3E033GC Introduction of Other Therapeutic Substance into Peripheral Vein, Percutaneous Approach (ICD-10-PCS; principal; 2021-07-14)
DX: D50.9 Iron deficiency anemia, unspecified (principal)
CPT/HCPCS: 36415; 85025; 96365; J1756

== ENCOUNTER 2021-07-21 07:53 | Day surgery (SDC) | payer BC ==
[2021-07-21] MEDS ORDERED: IRON SUCROSE INJECTION 300 MG in SODIUM CHLORIDE 250 ML IVPB ONE (10:00)
[2021-07-21 16:26] VITALS: TEMP 98.2
[2021-07-21 18:09] VITALS: BP 111/75; PULSE 84
== END 2021-07-21 18:47 | disposition home or self-care (01) ==
LOC: JONCCHEMO 07:53
PROVIDERS: ATTEND Internal Medicine Hematology & Oncology
PROC: 3E033GC Introduction of Other Therapeutic Substance into Peripheral Vein, Percutaneous Approach (ICD-10-PCS; principal; 2021-07-21)
DX: D50.9 Iron deficiency anemia, unspecified (principal)
CPT/HCPCS: 96365; J1756

== ENCOUNTER 2021-08-04 07:06 | Day surgery (SDC) | payer BC ==
[2021-08-04] MEDS ORDERED: IRON SUCROSE INJECTION 300 MG in SODIUM CHLORIDE 250 ML IVPB ONE (10:00)
[2021-08-04 13:29] LABS: BASO % 0.7 % (0-2.0); EOS % 2.7 % (0-4.5); HEMOGLOBIN 8.9 GM/dL (10.7-15.3); LYMPH % 36.4 % (8-40); MCH 23.7 pg (25.7-33.7); MCHC 31.6 g/dl (32.0-36.0); MEAN PLT VOLUME 7.6 fl (7.5-11.1); MONO % 7.7 % (3.8-10.2); NEUT % 52.5 % (42.8-82.8); PLATELET COUNT 267 10^3/uL (134-434); RBC 3.74 M/mm3 (3.60-5.2); WHITE BLOOD COUNT 3.9 K/mm3 (4.0-10.0)
[2021-08-04 16:25] VITALS: TEMP 98.5
[2021-08-04 16:52] VITALS: BP 149/75; PULSE 77
== END 2021-08-04 15:15 | disposition home or self-care (01) ==
LOC: JONCNONCHE 07:06
PROVIDERS: ATTEND Internal Medicine Hematology & Oncology
PROC: 3E033GC Introduction of Other Therapeutic Substance into Peripheral Vein, Percutaneous Approach (ICD-10-PCS; principal; 2021-08-04)
DX: D50.9 Iron deficiency anemia, unspecified (principal)
CPT/HCPCS: 36415; 85025; 96365; J1756

== ENCOUNTER 2021-08-25 06:27 | Day surgery (SDC) | payer BC ==
[2021-08-25 09:57] LABS: BASO % 1.1 % (0-2.0); EOS % 3.6 % (0-4.5); HEMATOCRIT 33.8 % (32.4-45.2); HEMOGLOBIN 10.9 GM/dL (10.7-15.3); LYMPH % 32.5 % (8-40); MCH 25.8 pg (25.7-33.7); MCHC 32.2 g/dl (32.0-36.0); MEAN CELL VOLUME 80.3 fl (80-96); MEAN PLT VOLUME 7.8 fl (7.5-11.1); MONO % 8.3 % (3.8-10.2); NEUT % 54.5 % (42.8-82.8); PLATELET COUNT 269 10^3/uL (134-434); RBC 4.21 M/mm3 (3.60-5.2); RDW 29.5 % (11.6-15.6); WHITE BLOOD COUNT 3.8 K/mm3 (4.0-10.0)
[2021-08-25] MEDS ORDERED: IRON SUCROSE INJECTION 300 MG in SODIUM CHLORIDE 250 ML IVPB ONE (10:00)
[2021-08-25 10:29] LABS: ANISOCYTOSIS 1+; MACROCYTOSIS 0
[2021-08-25 11:38] VITALS: BP 138/86; PULSE 62; TEMP 97.4
== END 2021-08-25 11:30 | disposition home or self-care (01) ==
LOC: JONCNONCHE 06:27
PROVIDERS: ATTEND Internal Medicine Hematology & Oncology
PROC: 3E033GC Introduction of Other Therapeutic Substance into Peripheral Vein, Percutaneous Approach (ICD-10-PCS; principal; 2021-08-25)
DX: E61.1 Iron deficiency (principal)
CPT/HCPCS: 36415; 85025; 96365; J1756

== ENCOUNTER 2021-09-01 07:45 | Day surgery (SDC) | payer BC ==
[2021-09-01] MEDS ORDERED: IRON SUCROSE INJECTION 300 MG in SODIUM CHLORIDE 250 ML IVPB ONE (10:00)
[2021-09-01 12:51] LABS: BASO % 0.9 % (0-2.0); EOS % 5.3 % (0-4.5); HEMOGLOBIN 10.1 GM/dL (10.7-15.3); LYMPH % 29.8 % (8-40); MCH 27.2 pg (25.7-33.7); MCHC 33.7 g/dl (32.0-36.0); MEAN CELL VOLUME 80.6 fl (80-96); MEAN PLT VOLUME 8.2 fl (7.5-11.1); PLATELET COUNT 245 10^3/uL (134-434); RBC 3.72 M/mm3 (3.60-5.2); RDW 27.7 % (11.6-15.6); WHITE BLOOD COUNT 4.1 K/mm3 (4.0-10.0)
[2021-09-01 14:39] LABS: ANISOCYTOSIS 1+; MACROCYTOSIS 2+
[2021-09-01 17:57] VITALS: TEMP 97.6
[2021-09-01 18:02] VITALS: BP 139/75; PULSE 75
== END 2021-09-01 14:30 | disposition home or self-care (01) ==
LOC: JONCNONCHE 07:45
PROVIDERS: ATTEND Internal Medicine Hematology & Oncology
PROC: 3E033GC Introduction of Other Therapeutic Substance into Peripheral Vein, Percutaneous Approach (ICD-10-PCS; principal; 2021-09-01)
DX: E61.1 Iron deficiency (principal)
CPT/HCPCS: 36415; 85025; 96365; J1756

== ENCOUNTER 2021-09-15 07:13 | Day surgery (SDC) | payer BC ==
[2021-09-15] MEDS ORDERED: IRON SUCROSE INJECTION 300 MG in SODIUM CHLORIDE 250 ML IVPB ONE (11:00)
[2021-09-15 13:02] LABS: BASO % 0.8 % (0-2.0); EOS % 14.1 % (0-4.5); HEMATOCRIT 34.4 % (32.4-45.2); HEMOGLOBIN 11.3 GM/dL (10.7-15.3); LYMPH % 25.6 % (8-40); MCH 27.7 pg (25.7-33.7); MCHC 32.8 g/dl (32.0-36.0); MEAN CELL VOLUME 84.5 fl (80-96); MONO % 5.9 % (3.8-10.2); NEUT % 53.6 % (42.8-82.8); PLATELET COUNT 241 10^3/uL (134-434); RBC 4.07 M/mm3 (3.60-5.2); WHITE BLOOD COUNT 5.3 K/mm3 (4.0-10.0)
[2021-09-15 14:25] LABS: ANISOCYTOSIS 2+; MACROCYTOSIS 0; TEAR DROP CELLS 1+
[2021-09-15 15:52] VITALS: BP 135/85; PULSE 67; TEMP 98.2
== END 2021-09-15 14:20 | disposition home or self-care (01) ==
LOC: JONCNONCHE 07:13
PROVIDERS: ATTEND Internal Medicine Hematology & Oncology
PROC: 3E033GC Introduction of Other Therapeutic Substance into Peripheral Vein, Percutaneous Approach (ICD-10-PCS; principal; 2021-09-15)
DX: D50.9 Iron deficiency anemia, unspecified (principal)
CPT/HCPCS: 36415; 85025; 96365; 96366; J1756

== ENCOUNTER 2021-12-22 07:37 | Day surgery (SDC) | payer BC ==
[2021-12-22] MEDS ORDERED: IRON SUCROSE INJECTION 200 MG in SODIUM CHLORIDE 100 ML IVPB ONE (09:15)
[2021-12-22 16:27] VITALS: RESP 18; TEMP 98.3
[2021-12-22 16:53] VITALS: BP 134/76; PULSE 63
== END 2021-12-22 16:53 | disposition home or self-care (01) ==
LOC: JONCNONCHE 07:37
PROVIDERS: ATTEND Internal Medicine Hematology & Oncology
PROC: 3E033GC Introduction of Other Therapeutic Substance into Peripheral Vein, Percutaneous Approach (ICD-10-PCS; principal; 2021-12-22)
DX: D50.9 Iron deficiency anemia, unspecified (principal)
CPT/HCPCS: 96365; J1756

== ENCOUNTER 2021-12-29 06:46 | Day surgery (SDC) | payer BC ==
[2021-12-29] MEDS ORDERED: IRON SUCROSE INJECTION 200 MG in SODIUM CHLORIDE 100 ML IVPB ONE (10:00)
[2021-12-29 18:19] VITALS: TEMP 98.4
[2021-12-29 18:25] VITALS: BP 129/73; PULSE 58; RESP 18
== END 2021-12-29 17:40 | disposition home or self-care (01) ==
LOC: JONCNONCHE 06:46 → JONCCHEMO 06:46 → JONCNONCHE 17:40
PROVIDERS: ATTEND Internal Medicine Hematology & Oncology
PROC: 3E033GC Introduction of Other Therapeutic Substance into Peripheral Vein, Percutaneous Approach (ICD-10-PCS; principal; 2021-12-29)
DX: D50.9 Iron deficiency anemia, unspecified (principal)
CPT/HCPCS: 96365; J1756

== ENCOUNTER 2022-01-19 07:20 | Day surgery (SDC) | payer BC ==
[2022-01-19] MEDS ORDERED: IRON SUCROSE INJECTION 200 MG in SODIUM CHLORIDE 100 ML IVPB ONE (10:00)
[2022-01-19 17:32] VITALS: BP 142/81; PULSE 64; RESP 16; TEMP 99.1
== END 2022-01-19 17:32 | disposition home or self-care (01) ==
LOC: JONCNONCHE 07:20
PROVIDERS: ATTEND Internal Medicine Hematology & Oncology
PROC: 3E033GC Introduction of Other Therapeutic Substance into Peripheral Vein, Percutaneous Approach (ICD-10-PCS; principal; 2022-01-19)
DX: D50.9 Iron deficiency anemia, unspecified (principal)
CPT/HCPCS: 96365; J1756

== ENCOUNTER 2022-02-02 08:45 | Day surgery (SDC) | payer BC ==
[~2022-02-02 08:45] MED LIST changes: -HYDROCORTISONE SOD SUCCINATE 100 MG/2 ML VIAL IVPUSH PRN; -diphenhydrAMINE HCL 25 MG CAPSULE (FP) PO PRN
[2022-02-02] MEDS ORDERED: IRON SUCROSE INJECTION 200 MG in SODIUM CHLORIDE 100 ML IVPB ONE (10:00)
[2022-02-02 10:26] VITALS: BP 152/91; PULSE 78; RESP 20; TEMP 98.5
== END 2022-02-02 10:40 | disposition home or self-care (01) ==
LOC: JONCNONCHE 08:45
PROVIDERS: ATTEND Internal Medicine Hematology & Oncology
PROC: 3E033GC Introduction of Other Therapeutic Substance into Peripheral Vein, Percutaneous Approach (ICD-10-PCS; principal; 2022-02-02)
DX: D50.9 Iron deficiency anemia, unspecified (principal)
CPT/HCPCS: 96365; J1756

== ENCOUNTER 2022-02-07 08:44 | Day surgery (SDC) | payer BC ==
[2022-02-07] MEDS ORDERED: IRON SUCROSE INJECTION 200 MG in SODIUM CHLORIDE 100 ML IVPB ONE (10:00)
[2022-02-07 17:11] VITALS: TEMP 98.5
[2022-02-07 17:15] VITALS: BP 122/78; PULSE 81; RESP 10
== END 2022-02-07 11:00 | disposition home or self-care (01) ==
LOC: JONCNONCHE 08:44
PROVIDERS: ATTEND Internal Medicine Hematology & Oncology
PROC: 3E033GC Introduction of Other Therapeutic Substance into Peripheral Vein, Percutaneous Approach (ICD-10-PCS; principal; 2022-02-07)
DX: D50.9 Iron deficiency anemia, unspecified (principal)
CPT/HCPCS: 96365; J1756

== ENCOUNTER 2023-07-16 11:55 | Day surgery (SDC) | payer BC ==
[2023-07-16 12:54] LABS: BASO % 0.7 % (0-2.0); EOS % 1.7 % (0-4.5); HEMATOCRIT 22.1 % (32.4-45.2); LYMPH % 33.8 % (8-40); MCHC 30.6 g/dl (32.0-36.0); MEAN CELL VOLUME 63.4 fl (80-96); MONO % 7.9 % (3.8-10.2); NEUT % 55.9 % (42.8-82.8); PLATELET COUNT 299 10^3/uL (134-434); RBC 3.48 M/mm3 (3.60-5.2); RDW 19.2 % (11.6-15.6); WHITE BLOOD COUNT 4.5 K/mm3 (4.0-10.0)
[2023-07-16] MEDS: IRON SUCROSE INJECTION 300 MG in SODIUM CHLORIDE 250 ML IVPB ONE (12:55)
[2023-07-16 12:56] LABS: MCH 19.4 pg (25.7-33.7)
[2023-07-16 13:01] LABS: HEMOGLOBIN 6.7 GM/dL (10.7-15.3)
[2023-07-16 13:40] LABS: ANISOCYTOSIS 1+; MACROCYTOSIS 0; TARGET CELLS 1+
[2023-07-16 17:20] VITALS: BP 130/82; PULSE 74; RESP 20; TEMP 97.8
== END 2023-07-16 14:45 | disposition home or self-care (01) ==
LOC: JONCNONCHE 11:55 → J7W 11:55 → JONCNONCHE 14:45
PROVIDERS: ATTEND Internal Medicine Hematology & Oncology
PROC: 3E033GC Introduction of Other Therapeutic Substance into Peripheral Vein, Percutaneous Approach (ICD-10-PCS; principal; 2023-07-16)
DX: D50.9 Iron deficiency anemia, unspecified (principal)
CPT/HCPCS: 36415; 85025; 96365; J1756

== ENCOUNTER 2023-07-19 11:00 | Day surgery (SDC) | payer BC ==
[2023-07-19 11:32] LABS: BASO % 0.7 % (0-2.0); EOS % 3.2 % (0-4.5); HEMATOCRIT 23.8 % (32.4-45.2); HEMOGLOBIN 7.3 GM/dL (10.7-15.3); MCHC 30.5 g/dl (32.0-36.0); MEAN CELL VOLUME 64.4 fl (80-96); MEAN PLT VOLUME 7.1 fl (7.5-11.1); MONO % 7.6 % (3.8-10.2); NEUT % 60.5 % (42.8-82.8); PLATELET COUNT 265 10^3/uL (134-434); RDW 19.6 % (11.6-15.6); WHITE BLOOD COUNT 4.6 K/mm3 (4.0-10.0)
[2023-07-19 11:33] LABS: MCH 19.7 pg (25.7-33.7)
[2023-07-19] MEDS: IRON SUCROSE INJECTION 300 MG in SODIUM CHLORIDE 250 ML IVPB ONE (11:37)
[2023-07-19 17:03] VITALS: BP 126/67; PULSE 75; RESP 16; TEMP 98.4
== END 2023-07-19 12:55 | disposition home or self-care (01) ==
LOC: JONCNONCHE 11:00 → J7W 11:00 → JONCNONCHE 12:55
PROVIDERS: ATTEND Internal Medicine Hematology & Oncology
PROC: 3E033GC Introduction of Other Therapeutic Substance into Peripheral Vein, Percutaneous Approach (ICD-10-PCS; principal; 2023-07-19)
DX: D50.9 Iron deficiency anemia, unspecified (principal)
CPT/HCPCS: 36415; 85025; 86850; 86900; 86901; 96365; J1756

== ENCOUNTER 2023-07-23 11:50 | Day surgery (SDC) | payer BC ==
[2023-07-23 12:15] LABS: EOS % 3.1 % (0-4.5); HEMATOCRIT 26.9 % (32.4-45.2); HEMOGLOBIN 8.3 GM/dL (10.7-15.3); LYMPH % 33.1 % (8-40); MCH 20.8 pg (25.7-33.7); MCHC 30.7 g/dl (32.0-36.0); MEAN CELL VOLUME 67.6 fl (80-96); MONO % 8.3 % (3.8-10.2); NEUT % 54.5 % (42.8-82.8); PLATELET COUNT 262 10^3/uL (134-434); RBC 3.97 M/mm3 (3.60-5.2); RDW 19.6 % (11.6-15.6); WHITE BLOOD COUNT 4.4 K/mm3 (4.0-10.0)
[2023-07-23] MEDS: IRON SUCROSE INJECTION 300 MG in SODIUM CHLORIDE 250 ML IVPB ONE (12:23)
[2023-07-23 13:21] LABS: ANISOCYTOSIS 2+; MACROCYTOSIS 1+
[2023-07-23 15:59] VITALS: RESP 16; TEMP 97.5
[2023-07-23 16:01] VITALS: BP 128/82; PULSE 74
== END 2023-07-23 14:30 | disposition home or self-care (01) ==
LOC: JONCNONCHE 11:50 → J7W 11:52 → JONCNONCHE 14:30
PROVIDERS: ATTEND Internal Medicine Hematology & Oncology
PROC: 3E033GC Introduction of Other Therapeutic Substance into Peripheral Vein, Percutaneous Approach (ICD-10-PCS; principal; 2023-07-23)
DX: D50.9 Iron deficiency anemia, unspecified (principal)
CPT/HCPCS: 36415; 85025; 96365; J1756

== ENCOUNTER 2023-07-26 13:12 | Day surgery (SDC) | payer BC ==
[2023-07-26 13:45] VITALS: RESP 18; TEMP 98.5
[2023-07-26] MEDS: IRON SUCROSE INJECTION 300 MG in SODIUM CHLORIDE 250 ML IVPB ONE (13:48)
[2023-07-26 13:49] LABS: BASO % 0.9 % (0-2.0); EOS % 2.8 % (0-4.5); HEMATOCRIT 27.7 % (32.4-45.2); HEMOGLOBIN 8.6 GM/dL (10.7-15.3); LYMPH % 30.5 % (8-40); MCH 21.6 pg (25.7-33.7); MCHC 31.1 g/dl (32.0-36.0); MEAN CELL VOLUME 69.6 fl (80-96); MEAN PLT VOLUME 7.7 fl (7.5-11.1); MONO % 7.9 % (3.8-10.2); NEUT % 57.9 % (42.8-82.8); PLATELET COUNT 267 10^3/uL (134-434); RBC 3.98 M/mm3 (3.60-5.2); RDW 20.5 % (11.6-15.6); WHITE BLOOD COUNT 4.6 K/mm3 (4.0-10.0)
[2023-07-26 15:34] VITALS: BP 109/64; PULSE 66
== END 2023-07-26 15:50 | disposition home or self-care (01) ==
LOC: JONCNONCHE 13:12 → J7W 13:30 → JONCNONCHE 15:50
PROVIDERS: ATTEND Internal Medicine Hematology & Oncology
PROC: 3E033GC Introduction of Other Therapeutic Substance into Peripheral Vein, Percutaneous Approach (ICD-10-PCS; principal; 2023-07-26)
DX: D50.9 Iron deficiency anemia, unspecified (principal)
CPT/HCPCS: 36415; 85025; 96365; J1756

== ENCOUNTER 2023-07-30 11:56 | Day surgery (SDC) | payer BC ==
[2023-07-30 12:25] LABS: BASO % 0.9 % (0-2.0); EOS % 2.9 % (0-4.5); HEMATOCRIT 30.8 % (32.4-45.2); HEMOGLOBIN 9.7 GM/dL (10.7-15.3); LYMPH % 32.6 % (8-40); MCH 22.5 pg (25.7-33.7); MCHC 31.3 g/dl (32.0-36.0); MEAN CELL VOLUME 71.8 fl (80-96); MEAN PLT VOLUME 8.4 fl (7.5-11.1); MONO % 7.9 % (3.8-10.2); NEUT % 55.7 % (42.8-82.8); PLATELET COUNT 334 10^3/uL (134-434); RBC 4.29 M/mm3 (3.60-5.2); RDW 32.4 % (11.6-15.6); WHITE BLOOD COUNT 4.2 K/mm3 (4.0-10.0)
[2023-07-30] MEDS: IRON SUCROSE INJECTION 300 MG in SODIUM CHLORIDE 250 ML IVPB ONE (12:28)
[2023-07-30 14:01] VITALS: TEMP 97.8
[2023-07-30 14:09] VITALS: BP 126/73; PULSE 72; RESP 18
== END 2023-07-30 14:40 | disposition home or self-care (01) ==
LOC: J7W 11:56 → JONCNONCHE 11:56
PROVIDERS: ATTEND Internal Medicine Hematology & Oncology
PROC: 3E033GC Introduction of Other Therapeutic Substance into Peripheral Vein, Percutaneous Approach (ICD-10-PCS; principal; 2023-07-30)
DX: D50.9 Iron deficiency anemia, unspecified (principal)
CPT/HCPCS: 36415; 85025; 96365; J1756

== ENCOUNTER 2023-08-09 11:00 | Day surgery (SDC) | payer BC ==
[~2023-08-09 11:00] MED LIST changes: -IRON SUCROSE INJECTION 200 MG in SODIUM CHLORIDE 100 ML IVPB ONE; +IRON SUCROSE INJECTION 300 MG in SODIUM CHLORIDE 250 ML IVPB ONE
[2023-08-09 11:31] LABS: EOS % 3.5 % (0-4.5); HEMATOCRIT 32.3 % (32.4-45.2); HEMOGLOBIN 10.5 GM/dL (10.7-15.3); LYMPH % 37.9 % (8-40); MCH 24.4 pg (25.7-33.7); MCHC 32.4 g/dl (32.0-36.0); MEAN CELL VOLUME 75.2 fl (80-96); MEAN PLT VOLUME 8.4 fl (7.5-11.1); MONO % 6.8 % (3.8-10.2); NEUT % 50.8 % (42.8-82.8); PLATELET COUNT 286 10^3/uL (134-434); RBC 4.29 M/mm3 (3.60-5.2); RDW 33.2 % (11.6-15.6); WHITE BLOOD COUNT 3.8 K/mm3 (4.0-10.0)
[2023-08-09] MEDS: IRON SUCROSE INJECTION 300 MG in SODIUM CHLORIDE 250 ML IVPB ONE (11:35)
[2023-08-09 16:40] VITALS: BP 142/73; PULSE 75; RESP 18; TEMP 97.7
== END 2023-08-09 13:30 | disposition home or self-care (01) ==
LOC: J7W 11:00 → JONCNONCHE 11:00
PROVIDERS: ATTEND Internal Medicine Hematology & Oncology
PROC: 3E033GC Introduction of Other Therapeutic Substance into Peripheral Vein, Percutaneous Approach (ICD-10-PCS; principal; 2023-08-09)
DX: D50.9 Iron deficiency anemia, unspecified (principal)
CPT/HCPCS: 36415; 85025; 96365; J1756

== ENCOUNTER 2024-12-10 09:16 | Day surgery (SDC) | payer BC ==
[2024-12-10 09:37] VITALS: RESP 18; TEMP 97.5
[2024-12-10] MEDS: IRON SUCROSE INJECTION 200 MG in SODIUM CHLORIDE 100 ML IVPB ONE (10:10)
[2024-12-10] MEDS: CYANOCOBALAMIN (VITAMIN B-12) 1000 MCG/1 ML VIAL IM ONE (10:15)
[2024-12-10 10:51] VITALS: BP 120/67; PULSE 65
== END 2024-12-10 11:35 | disposition home or self-care (01) ==
LOC: JONCNONCHE 09:16 → J7W 09:17 → JONCNONCHE 11:35
PROVIDERS: ATTEND Internal Medicine Hematology & Oncology
PROC: 3E033GC Introduction of Other Therapeutic Substance into Peripheral Vein, Percutaneous Approach (ICD-10-PCS; principal; 2024-12-10)
DX: D50.9 Iron deficiency anemia, unspecified (principal)
CPT/HCPCS: 96365; J1756

== ENCOUNTER 2024-12-17 09:47 | Day surgery (SDC) | payer BC ==
[2024-12-17] MEDS: IRON SUCROSE INJECTION 200 MG in SODIUM CHLORIDE 100 ML IVPB ONE (10:02)
[2024-12-17] MEDS: CYANOCOBALAMIN (VITAMIN B-12) 1000 MCG/1 ML VIAL IM ONE (10:47)
[2024-12-17 16:38] VITALS: RESP 20; TEMP 98.2
[2024-12-17 16:42] VITALS: BP 139/86; PULSE 65
== END 2024-12-17 11:00 | disposition home or self-care (01) ==
LOC: JONCCHEMO 09:47 → J7W 10:24 → JONCCHEMO 11:00
PROVIDERS: ATTEND Internal Medicine Hematology & Oncology
PROC: 3E033GC Introduction of Other Therapeutic Substance into Peripheral Vein, Percutaneous Approach (ICD-10-PCS; principal; 2024-12-17)
DX: D50.9 Iron deficiency anemia, unspecified (principal)
CPT/HCPCS: 96365; J1756

== ENCOUNTER 2024-12-31 09:45 | Day surgery (SDC) | payer BC ==
[2024-12-31] MEDS: IRON SUCROSE INJECTION 200 MG in SODIUM CHLORIDE 100 ML IVPB ONE (10:11)
[2024-12-31] MEDS: CYANOCOBALAMIN (VITAMIN B-12) 1000 MCG/1 ML VIAL IM ONE (10:12)
[2024-12-31 14:53] VITALS: BP 138/85; PULSE 76; RESP 20; TEMP 98.5
== END 2024-12-31 11:05 | disposition home or self-care (01) ==
LOC: JONCCHEMO 09:45
PROVIDERS: ATTEND Internal Medicine Hematology & Oncology
PROC: 3E033GC Introduction of Other Therapeutic Substance into Peripheral Vein, Percutaneous Approach (ICD-10-PCS; principal; 2024-12-31)
PROC: 3E023GC Introduction of Other Therapeutic Substance into Muscle, Percutaneous Approach (ICD-10-PCS; 2024-12-31)
DX: D50.9 Iron deficiency anemia, unspecified (principal); E53.8 Deficiency of other specified B group vitamins
CPT/HCPCS: J1756